=== PATIENT | male | born 1980 | race Two or more races ===

== ENCOUNTER 2022-09-23 02:25 | Emergency (ER) | payer SELFPAY ==
[~2022-09-23] VITALS: Ht 177.8 cm; Wt 68.1 kg
[2022-09-23 02:36] VITALS: BP 157/91
== END 2022-09-23 06:58 | disposition left against medical advice (07) ==
LOC: ER 02:25
DX: Z04.71 Encounter for examination and observation following alleged adult physical abuse (principal); Z53.21 Procedure and treatment not carried out due to patient leaving prior to being seen by health care provider

== ENCOUNTER 2025-10-31 00:49 | Emergency (ER) | payer MEDICAID ==
[~2025-10-31] VITALS: Ht 177.8 cm; Wt 72.7 kg
--- NOTE | 2025-10-31 01:50 | RADIOLOGY REPORT ---
CLINICAL INDICATION: trauma, pain TECHNIQUE: FOREARMDI FOREARM,INCL.ONE JOINT, left COMPARISON: None FINDINGS/IMPRESSION: : There is no evidence of acute fracture or dislocation. Soft tissues are unremarkable.
--- NOTE | 2025-10-31 01:55 | RADIOLOGY REPORT ---
CLINICAL INDICATION: Finger Pain (multiple fingers) TECHNIQUE: HAND 3VWDI HAND, COMPLETE (3VW MIN), right COMPARISON: None FINDINGS/IMPRESSION: : There is no evidence of acute fracture or dislocation. Soft tissues are unremarkable.
[2025-10-31] MEDS ORDERED: SULF1TAB49 PO (03:06)
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
[2025-10-31] MEDS: sulfamethoxazole/trimethoprim DS (800/160mg) tablet PO ONE (03:27)
[2025-10-31] MEDS: HYDROcodone/acetaminophen 5mg/325mg tablet PO ONE (03:27)
[2025-10-31] MEDS: TETanus/Pertussis (Acell)/Diphther VAC/PF (Tdap-Adult) 0.5ml syringe IMVAC ONE (03:29)
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
[2025-10-31 04:52] VITALS: BP 124/80; PULSE 80; RESP 16; TEMP 97.8; O2SAT 99
== END 2025-10-31 05:10 | disposition home or self-care (01) ==
LOC: ER 00:50
DX: S01.81XA Laceration without foreign body of other part of head, initial encounter (principal); S50.12XA Contusion of left forearm, initial encounter; S06.0XAA Concussion with loss of consciousness status unknown, initial encounter; G89.11 Acute pain due to trauma; M54.2 Cervicalgia; Z88.0 Allergy status to penicillin; Z79.899 Other long term (current) drug therapy; Y04.0XXA Assault by unarmed brawl or fight, initial encounter; Y93.89 Activity, other specified; Y92.89 Other specified places as the place of occurrence of the external cause; Y99.8 Other external cause status
CPT/HCPCS: 70450; 72125; 73090; 73130; 90471; 90715; 99285